=== PATIENT | male | born 1985 | race Caucasian/White ===

== ENCOUNTER 2018-09-12 13:07 | Emergency (ER) | payer SELFPAY ==
[~2018-09-12] VITALS: Ht 177.8 cm; Wt 81.8 kg
[2018-09-12] MEDS ORDERED: ZIPRASIDONE 20 MG INJ IM ONE ×2 (13:12→13:30)
--- NOTE | 2018-09-12 13:25 | NUR ---
BIB [facility] FOR ETOH AFTER BEING FOUND DOWN ON SIDEWALK. BS 79. NSR 80, 96% RA AND BP 80/40. PT BP IS ED IS 97/53. PT AGGRESSIVE. GIVEN 0.5 MG NARCAN AND 500 ML NS TANK CHARGER. MONITORS APPLIED. PT AGGRESSIVE TOWARD STAFF. SPIT GUARD APPLIED. LEATHER RESTRAINTS APPLIED TO ALL 4 EXTREMITIES. BLANK T PROVIDED.
[2018-09-12 13:57] LABS: BASOPHILS # (AUTO) 0.02 x10^3/uL (0-0.1); BASOPHILS % (AUTO) 0 % (0-1); EOSINOPHILS # (AUTO) 0.04 x10^3/uL (0-0.4); EOSINOPHILS % (AUTO) 1 % (1-7); LYMPHOCYTES # (AUTO) 1.16 x10^3/uL (1-3.4); LYMPHOCYTES % (AUTO) 15 % (22-44); MD NO; MEAN CORPUSCULAR HEMOGLOBIN 33.4 pg (27.5-34.5); MEAN CORPUSCULAR HGB CONC 34.2 g/dL (33.2-36.2); MEAN CORPUSCULAR VOLUME 97.5 fL (81-97); MEAN PLATELET VOLUME 6.8 fL (7.4-10.4); MONOCYTES # (AUTO) 0.34 x10^3/uL (0.2-0.8); MONOCYTES % (AUTO) 5 % (2-9); NEUTROPHILS # (AUTO) 6.02 x10^3/uL (1.8-6.8); NEUTROPHILS % (AUTO) 80 % (42-75); PLATELET COUNT 261 x10^3/uL (130-400); RED CELL DISTRIBUTION WIDTH 14.3 % (9.4-14.8)
[2018-09-12] MEDS ORDERED: SODIUM CHLORIDE 0.9%, 500ML IVBOLUS ONE (14:00)
[2018-09-12 14:03] LABS: ALANINE AMINOTRANSFERASE 34 U/L (12-78); ALBUMIN 4.1 g/dL (3.4-5.0); ANION GAP 11 mmol/L (5-15); CALCIUM 8.4 mg/dL (8.5-10.1); CHLORIDE 112 mmol/L (98-107); CREATININE 0.83 mg/dL (0.7-1.3); SALICYLATE LEVEL 4.7 mg/dL (2.8-20.0)
[2018-09-12 14:05] LABS: ALKALINE PHOSPHATASE 133 U/L (45-117); BILIRUBIN,TOTAL 0.3 mg/dL (0.2-1.0); TOTAL PROTEIN 7.5 g/dL (6.4-8.2)
--- NOTE | 2018-09-12 14:07 | NUR ---
PT SLEEPING ON [facility]. YAS. VSS. MEDICATED PER JUL.
[2018-09-12 14:09] LABS: ACETAMINOPHEN < 2 mcg/mL (10-30)
--- NOTE | 2018-09-12 14:54 | NUR ---
LUE AND RLE RESTRAINTS REMOVED.
--- NOTE | 2018-09-12 15:02 | NUR ---
UNABLE TO OBTAIN UA SAMPLE AT THIS TIME.
--- NOTE | 2018-09-12 15:58 | NUR ---
ALL RESTRAINTS REMOVED FROM PT. PT SLEEPING ON [facility]. NADN. COLES.
--- NOTE | 2018-09-12 17:26 | NUR ---
PT SLEEPING ON [place]. NADN. COLES.
--- NOTE | 2018-09-12 17:30 | NUR ---
UNABLE TO OBTAIN UA AT THIS TIME. PT CONTINUES TO BE HEAVILY INTOXICATED.
[2018-09-12 18:32] VITALS: BP 118/71
--- NOTE | 2018-09-12 19:17 | NUR ---
REPORT GIVEN TO INGA SIERRA RN.
--- NOTE | 2018-09-12 20:14 | NUR ---
PT UP OUT OF BED WALKING AND DRINKING FROM THE SINK. PT REQUESTING FOOD. INFORMED.
== END 2018-09-12 21:05 | disposition home or self-care (01) ==
LOC: ED 20:59
DX: F10.220 Alcohol dependence with intoxication, uncomplicated (principal)
CPT/HCPCS: 36415; 80053; 80307; 80329; 85025; 96372; 99283; J3486; J7040; G0480